=== PATIENT | male | born 1960 | race African-American/Black ===

== ENCOUNTER 2017-01-21 10:48 | Emergency (ER) | payer MEDICAID, MEDICARE, OTHER ==
[~2017-01-21] VITALS: Ht 185.4 cm; Wt 68.0 kg
[~2017-01-21 10:48] MED LIST: ACET500T68 PO; DICL75TA PO; ENAL5TAB PO; FERR325T72 PO; LISI-377 PO; OLAN5TAB3 PO; OLAN5TAB9 PO; OMEP20CA9 PO; PANT40TA3 PO; PANT40TA5 PO; POLY17PO29 PO; RANI150C PO
--- NOTE | 2017-01-21 11:05 | PHYS DOC ---
Past Medical History Past Medical History: GERD, Hypertension, Other Additional Past Medical Histor: CHRONIC,BILAT SHOULDER PAIN Past Surgical History: Other Additional Past Surgical Histo: BILAT LEG ORIF Alcohol Use: None Drug Use: None Adult General Chief Complaint Chief Complaint: GENERALIZED BODY ACHES HPI HPI Patient is a 56 year old -[place] male who presents with complaints. All of his complaints of been going on for about 4-5 month since he got out of the hospital for the same thing before. He states he feels achy everywhere he feels weak in his legs. He's been having nausea and vomiting he vomits every morning as gotten worse when he is warm. He states here in the ambulance made his nausea worse. He states if he doesn't eat when he first gets up he has abdominal pain that's diffuse and is made better when he eats something. He states he ate some oatmeal this morning in his nausea and discomfort as gotten better. He also complains about bilateral shoulders is been bothering him ever since he carried some heavy groceries and now it hurts worse. He also complains about lumbar back pain that's been going on for several months. He states it's worse when he tries to lay flat but he otherwise can stand up and walk without any difficulty. He states he was on a bunch of medicines but his primary care physician stopped all of them for 5 months ago. He states now he just takes occasional Tylenol. He also complains about some constipation he states he is to drink plenty of water or he becomes constipated dehydrated. He denies any active chest pain or shortness of breath. Review of Systems Review of Systems Constitutional: Denies fever or chills [] Eyes: Denies change in visual acuity, redness, or eye pain [] HENT: Denies nasal congestion or sore throat [] Respiratory: Denies cough or shortness of breath [] Cardiovascular: No additional information not addressed in HPI [] GI: Denies abdominal pain, nausea, vomiting, bloody stools or diarrhea [] : Denies dysuria or hematuria [] Musculoskeletal: Positive for back pain and body aches Integument: Denies rash or skin lesions [] Neurologic: Denies headache, focal weakness or sensory changes [] Endocrine: Denies polyuria or polydipsia [] Current Medications Current Medications Current Medications Medications (Trade) Dose Ordered Sig/Dalton Start Time Stop Time Status Last Admin Dose Admin Tramadol HCl (Ultram) 50 mg 1X ONCE 01/21/17 14:00 01/21/17 14:01 Allergies Allergies Allergies Coded Allergies Type Severity Reaction Last Updated Verified No Known Drug Allergies 01/21/17 No Physical Exam Physical Exam Constitutional: Well developed, well nourished, no acute distress, non-toxic appearance. [] HENT: Normocephalic, atraumatic, bilateral external ears normal, oropharynx moist, no oral exudates, nose normal. [] Eyes: PERRLA, EOMI, conjunctiva normal, no discharge. [] Neck: Normal range of motion, no tenderness, supple, no stridor. [] Cardiovascular:Heart rate regular rhythm, no murmur [] Lungs & Thorax: Bilateral breath sounds clear to auscultation [] Abdomen: Bowel sounds normal, soft, no tenderness, no masses, no pulsatile masses. [] Skin: Warm, dry, no erythema, no rash. [] Back: No tenderness, no CVA tenderness. [] Extremities: No tenderness, no cyanosis, no clubbing, ROM intact, no edema. [] Neurologic: Alert and oriented X 3, normal motor function, normal sensory function, no focal deficits noted. [] Psychologic: Affect normal, judgement normal, mood normal. [] Current Patient Data Vital Signs Vital Signs Date Time Temp Pulse Resp B/P (MAP) Pulse Ox O2 Delivery O2 Flow Rate FiO2 01/21/17 10:54 97.7 86 18 158/84 (108) 100 Room Air 97.7 Lab Values Laboratory Tests Test 01/21/17 11:35 01/21/17 13:05 White Blood Count 4.4 x10^3/uL (4.0-11.0) Red Blood Count 4.31 x10^6/uL (4.30-5.70) Hemoglobin 13.5 g/dL (13.0-17.5) Hematocrit 40.2 % (39.0-53.0) Mean Corpuscular Volume 93 fL (79-100) Mean Corpuscular Hemoglobin 31 pg (25-35) Mean Corpuscular Hemoglobin Concent 34 g/dL (31-37) Red Cell Distribution Width 14.1 % (11.5-14.5) Platelet Count 208 x10^3/uL (140-400) Neutrophils (%) (Auto) 41 % (31-73) Lymphocytes (%) (Auto) 41 % (24-48) Monocytes (%) (Auto) 12 % (0-9) H Eosinophils (%) (Auto) 6 % (0-3) H Basophils (%) (Auto) 1 % (0-3) Neutrophils # (Auto) 1.8 x10^3uL (1.8-7.7) Lymphocytes # (Auto) 1.8 x10^3/uL (1.0-4.8) Monocytes # (Auto) 0.5 x10^3/uL (0.0-1.1) Eosinophils # (Auto) 0.3 x10^3/uL (0.0-0.7) Basophils # (Auto) 0.0 x10^3/uL (0.0-0.2) Sodium Level 141 mmol/L (136-145) Potassium Level 3.7 mmol/L (3.5-5.1) Chloride Level 103 mmol/L (98-107) Carbon Dioxide Level 27 mmol/L (21-32) Anion Gap 11 (6-14) Blood Urea Nitrogen 17 mg/dL (8-26) Creatinine 0.9 mg/dL (0.7-1.3) Estimated GFR (Cockcroft-Gault) 106.4 Glucose Level 78 mg/dL (70-99) Calcium Level 9.4 mg/dL (8.5-10.1) Magnesium Level 1.9 mg/dL (1.8-2.4) Total Bilirubin 0.5 mg/dL (0.2-1.0) Direct Bilirubin 0.1 mg/dL (0.0-0.2) Aspartate Amino Transferase (AST) 19 U/L (15-37) Alanine Aminotransferase (ALT) 18 U/L (16-63) Alkaline Phosphatase 74 U/L (46-116) Creatine Kinase 151 U/L (39-308) Creatine Kinase MB (Mass) < 0.5 ng/mL (0.0-3.6) Creatine Kinase MB Relative Index % (0-4) Troponin I Quantitative < 0.017 ng/mL (0.000-0.055) Total Protein 7.5 g/dL (6.4-8.2) Albumin 4.0 g/dL (3.4-5.0) Lipase 157 U/L (73-393) Urine Collection Type Unknown Urine Color Yellow Urine Clarity Clear Urine pH 7.0 Urine Specific Guion 1.020 Urine Protein Negative mg/dL (NEG-TRACE) Urine Glucose (UA) Negative mg/dL (NEG) Urine Ketones (Stick) 40 mg/dL (NEG) Urine Blood Negative (NEG) Urine Nitrite Negative (NEG) Urine Bilirubin Negative (NEG) Urine Urobilinogen Dipstick 1.0 mg/dL (0.2 mg/dL) Urine Leukocyte Esterase Negative (NEG) Urine RBC 0 /HPF (0-2) Urine WBC 0 /HPF (0-4) Urine Squamous Epithelial Cells Few /LPF Urine Bacteria 0 /HPF (0-FEW) Urine Mucus Slight /LPF Laboratory Tests 01/21/17 11:35 Laboratory Tests 01/21/17 11:35 EKG EKG EKG shows sinus rhythm with rate of [address] elevations or concerning T-wave inversions, normal axis, LVH noted, QTC 426 ms, as interpreted by me. Radiology/Procedures Radiology/Procedures [facility] [address] [place] [address] IMAGING REPORT Signed PATIENT: KAI VILLEDA ACCOUNT: [id number] : 1960 LOCATION: ER AGE: 56 SEX: M EXAM STATUS: PRE ER ORD. PHYSICIAN: EDGARDO MG MD REASON: pain,pt denies injury or trauma,states pain for 5 months PROCEDURE: LUMBAR SPINE 2-3V Indication chronic back pain. No history of injury. AP and lateral views of the lumbar spine were obtained as well as a coned view targeted to the lumbosacral junction. There are degenerative changes at L5-S1. This is manifested as disc space narrowing vacuum disc phenomenon and some degenerative endplate change. Vertebral height is well maintained. Alignment is unremarkable. Acute bony finding is not seen. IMPRESSION: Degenerative changes at L5-S1 DICTATED and SIGNED BY: GOKUL MONZON MD DATE: 01/21/17 1201 CC: EDGARDO MG MD; YOVANY RGOERS MD ~ Impressions: Dehydration Chronic back pain Chronic shoulder pain Course & Med Decision Making Course & Med Decision Making Pertinent Labs and Imaging studies reviewed. (See chart for details) Patient's been requesting to eat. He states he feels better now. He has no acute abnormalities on physical exam that are concerning. His x-ray of his back condition to lab work did not show any acute abnormality's. His urine does show some ketones. He is been given a food tray and instructed to drink extra water. He is going to be given tramadol here and then a prescription to go home with 50 mg every 6 when necessary pain #30. He is instructed to use it as needed with Tylenol if needed. He is instructed to drink extra water, return precautions given. He is agreeable plan of being discharged in stable condition. Dragon Disclaimer Dragon Disclaimer This electronic medical record was generated, in whole or in part, using a voice recognition dictation system. Departure Departure Impression: Primary Impression: Dehydration Disposition: ADMITTED INPATIENT Condition: STABLE Referrals: YVOANY ROGERS MD (PCP) Patient Instructions: Dehydration, Adult Additional Instructions: You were seen in the ER for multiple complaints. You had shoulders pain, back pain, some nausea which is relieved when you eat food. You have you are slightly dehydrated and will need to drink a few extra glasses of water today. Your x-ray and lab work in addition to your urinalysis did not show any acute abnormalities. You can use tramadol in addition to your normal Tylenol for pain. You will need to follow-up with Dr. Rogers. His call his office and schedule follow-up appointment. Return ER for severe pain, fevers, uncontrolled nausea vomiting, or other concerns. Scripts Tramadol Hcl (TRAMADOL HCL) 50 Mg Tablet 1 TAB PO PRN Q6HRS Y for PAIN, #30 TAB Prov: EDGARDO MG MD 01/21/17 EDGARDO MG MD Jan 21, 2017 11:05
--- NOTE | 2017-01-21 11:42 | EKG ---
[facility] [address] [place] [address] Test Date: 2017-01-21 Test Time: 11:20:31 Pat Name: KAI VILLEDA Department: Room: Gender: M [employer] Consult[employer]: : 1960 Requested By: EDGARDO MG Order Number: [id number] Reading MD: Measurements Intervals [place] Rate: 82 P: 0 MT: 154 QRS: 73 QRSD: 98 T: 48 QT: 362 QTc: 426 Interpretive Statements SINUS RHYTHM QRS(T) CONTOUR ABNORMALITY CONSIDER ANTEROSEPTAL MYOCARDIAL DAMAGE CONSIDER INFERIOR MYOCARDIAL DAMAGE POSSIBLY ABNORMAL ECG RI6.01 No previous ECG available for comparison
[2017-01-21 11:46] LABS: BASO % 1 % (0-3); EOS % 6 % (0-3); HEMATOCRIT 40.2 % (39.0-53.0); HEMOGLOBIN 13.5 g/dL (13.0-17.5); LYMPH # 1.8 x10^3/uL (1.0-4.8); LYMPH % 41 % (24-48); MEAN CORPUSCULAR HEMOGLOBIN 31 pg (25-35); MEAN CORPUSCULAR HGB CONC 34 g/dL (31-37); MEAN CORPUSCULAR VOLUME 93 fL (79-100); MONO % 12 % (0-9); NEUT % 41 % (31-73); PLATELET COUNT 208 x10^3/uL (140-400); RED BLOOD COUNT 4.31 x10^6/uL (4.30-5.70); RED CELL DISTRIBUTION WIDTH 14.1 % (11.5-14.5); WHITE BLOOD COUNT 4.4 x10^3/uL (4.0-11.0)
[2017-01-21 11:53] LABS: CALCIUM 9.4 mg/dL (8.5-10.1); CREATININE 0.9 mg/dL (0.7-1.3); GFR 106.4; POTASSIUM 3.7 mmol/L (3.5-5.1)
[2017-01-21 11:57] LABS: DIRECT BILIRUBIN 0.1 mg/dL (0.0-0.2); MAGNESIUM 1.9 mg/dL (1.8-2.4); TOTAL BILIRUBIN 0.5 mg/dL (0.2-1.0); TOTAL PROTEIN 7.5 g/dL (6.4-8.2)
--- NOTE | 2017-01-21 12:07 | RAD ---
Indication chronic back pain. No history of injury. AP and lateral views of the lumbar spine were obtained as well as a coned view targeted to the lumbosacral junction. There are degenerative changes at L5-S1. This is manifested as disc space narrowing vacuum disc phenomenon and some degenerative endplate change. Vertebral height is well maintained. Alignment is unremarkable. Acute bony finding is not seen. IMPRESSION: Degenerative changes at L5-S1
[2017-01-21 12:10] LABS: CKMB MASS < 0.5 ng/mL (0.0-3.6); CREATINE KINASE 151 U/L (39-308)
--- NOTE | 2017-01-21 12:15 | RAD ---
Indication chest pain. A single view of the chest was obtained. Comparison is made to an examination May 01, 2016. There are suspect background changes of emphysema. The heart and pulmonary vessels appear normal. The lungs are clear. There is no pleural fluid or pneumothorax. Visualized bony structures appear grossly intact. A significant change in the chest compared to the previous exam is not seen. IMPRESSION: No acute or focal process. No significant change
[2017-01-21 13:16] LABS: BILIRUBIN,URINE NEGATIVE (NEG); GLUCOSE,URINE NEGATIVE (NEG); NITRITE,URINE NEGATIVE (NEG); PROTEIN,URINE NEGATIVE (NEG-TRACE)
[2017-01-21 13:20] LABS: BACTERIA,URINE 0 /HPF (0-FEW); RBC,URINE 0 /HPF (0-2); SQUAMOUS EPITHELIAL CELL,UR FEW /LPF; WBC,URINE 0 /HPF (0-4)
[2017-01-21 13:45] VITALS: BP 124/78
[2017-01-21] MEDS ORDERED: TRAM50TA PO (13:49)
[2017-01-21] MEDS ORDERED: traMADol 50 MG TABLET PO ONE (14:00)
== END 2017-01-21 13:59 | disposition home or self-care (01) ==
LOC: ER 10:48
DX: E86.0 Dehydration (principal); I10 Essential (primary) hypertension; K21.9 Gastro-esophageal reflux disease without esophagitis; R10.84 Generalized abdominal pain; M54.5 Low back pain; G89.29 Other chronic pain; K59.00 Constipation, unspecified
CPT/HCPCS: 36415; 71010; 72100; 80048; 80076; 81001; 82553; 83690; 83735; 84484; 85025; 93005; 99285-25

== ENCOUNTER 2019-04-25 22:39 | Emergency (ER) | payer MEDICARE, OTHER ==
[~2019-04-25] VITALS: Ht 185.4 cm; Wt 59.0 kg
[~2019-04-25 22:39] MED LIST changes: +OMEP20CA16 PO; -OMEP20CA9 PO; -PANT40TA3 PO; -PANT40TA5 PO; +PANT40TA77 PO; +TRAM50TA PO
[2019-04-25 22:48] VITALS: BP 149/91
[2019-04-25] MEDS ORDERED: LIDO:MAALOX 1:1 20 ML SINGLE DOSE. SWSW ONE (23:30)
[2019-04-25] MEDS ORDERED: ACETAMINOPHEN 500 MG TABLET PO ONE (23:30)
[2019-04-26] MEDS ORDERED: ACET500T68 PO (00:36)
[2019-04-26] MEDS ORDERED: FAMO20TA5 PO (00:36)
--- NOTE | 2019-04-26 00:37 | PHYS DOC ---
Past Medical History Past Medical History: GERD, Hypertension, Renal Failure, Other Additional Past Medical Histor: CHRONIC,BILAT SHOULDER PAIN (ANTOINETTE PRATHER APRN) Past Surgical History: Other Additional Past Surgical Histo: BILAT LEG ORIF (ANTOINETTE PRATHER APRN) Alcohol Use: None Drug Use: None (ANTOINETTE PRATHER APRN) Attending Signature I have participated in the care of this patient and I have reviewed and agree with all pertinent clinical information above including history, exam, and recommendations. (CHARLES PETER MD) Adult General Chief Complaint Chief Complaint: [facility] HPI Patient is a 58 year old AA male who presents to emergency department via EMS with complaints of bilateral shoulder pain that increased after he was outside in cold weather today. Patient states his shoulder pain radiates to his neck and his upper back. He denies any chest pain, palpitations, shortness of breath, wheezing, vomiting, diarrhea, fever, sore throat, ear pain, headache, dizziness, numbness, tingling, or weakness of his extremities. Patient states he has had some burning pain in his upper abdomen with nausea today. He states he thinks it is due to not eating very much today. He rates his pain a 7 out of 10 on the pa in scale he describes the pain as a cramp that is worse with movement. Patient also reports lifting a heavy TV earlier today and thinks that might have caused his shoulder pain. He denies any recent injury or fall. All other ROS is neg unless otherwise noted in HPI. (ANTOINETTE PRATHER APRN) Review of Systems Review of Systems See Above (ANTOINETTE PRATHER APRN) Current Medications Current Medications Current Medications Medications (Trade) Dose Ordered Sig/Dalton Start Time Stop Time Status Last Admin Dose Admin Acetaminophen (Tylenol) 1,000 mg 1X ONCE 04/25/19 23:30 04/25/19 23:31 DC 04/25/19 23:31 500 MG Multi-Ingredient Mouthwash/Gargle (Gi Cocktail) 20 ml 1X ONCE 04/25/19 23:30 04/25/19 23:31 DC 04/25/19 23:30 20 ML (CHARLES PETER MD) Allergies Allergies Allergies Coded Allergies Type Severity Reaction Last Updated Verified No Known Drug Allergies 01/21/17 No (CHARLES PETER MD) Allergies See Above (ANTOINETTE PRATHER APRN) Physical Exam Physical Exam See Above Constitutional: Well developed, well nourished, no acute distress, non-toxic appearance. [] HENT: Normocephalic, atraumatic, bilateral external ears normal, oropharynx moist, no oral exudates, nose normal. [] Eyes: PERRLA, EOMI, conjunctiva normal, no discharge. [] Neck: Normal range of motion, no tenderness, supple, no stridor. [] Cardiovascular:Heart rate regular rhythm, no murmur [] Lungs & Thorax: Bilateral breath sounds clear to auscultation, Respirations even and unlabored, no retractions, no respiratory distress [] Abdomen: Bowel sounds normal, soft, no tenderness, no masses, no pulsatile masses. [] Skin: Warm, dry, no erythema, no rash. [] Back: No tenderness Extremities: No bony tenderness, no cyanosis, no clubbing, ROM intact, no edema. [] Neurologic: Alert and oriented X 3, no focal deficits noted. [] Psychologic: Affect normal, judgement normal, mood normal. [] (ANTOINETTE PRATHER APRN) Current Patient Data Vital Signs Vital Signs Date Time Temp Pulse Resp B/P (MAP) Pulse Ox O2 Delivery O2 Flow Rate FiO2 04/25/19 22:48 98.3 98 20 149/91 (110) 100 Room Air 98.3 (CHARLES PETER MD) EKG EKG [] (ANTOINETTE PRATHER APRN) Radiology/Procedures Radiology/Procedures [] (ANTOINETTE PRATHER APRN) Course & Med Decision Making Course & Med Decision Making Pertinent Labs and Imaging studies reviewed. (See chart for details) The patient was given a GI cocktail and 500 mg of Tylenol in the emergency department he reported relief of his abdominal pain and states that his shoulders felt better. Prescriptions were written for Pepcid and Tylenol. Patient was encouraged follow bland diet. Follow-up with his primary care doctor in 1-2 days, return to the ER if symptoms worsen. Patient verbalized an understanding of home care, medications, follow-up, and return to ED instructions and was in agreement with the plan of care. [] (ANTOINETTE PRATHER APRN) Dragon Disclaimer Dragon Disclaimer This electronic medical record was generated, in whole or in part, using a voice recognition dictation system. (ANTOINETTE PRATHER APRN) Departure Departure Impression: Primary Impression: Pain of both shoulder joints Additional Impressions: Epigastric pain Acid indigestion Disposition: HOME, SELF-CARE Condition: STABLE Referrals: YOVANY ROGERS MD (PCP) Patient Instructions: Heartburn, [id number], Shoulder Pain, [id number] Additional Instructions: Fill the prescriptions and use them as directed. Recommend that you eat a bland diet for a few days until your reflux has improved. Follow-up with your primary care doctor in 1-2 days. Return to the ER if symptoms worsen. Scripts Famotidine (FAMOTIDINE) 20 Mg Tablet 20 MG PO HS for 30 Days, #30 TAB 0 Refills Prov: ANTOINETTE PRATHER APRN 04/26/19 Acetaminophen (ACETAMINOPHEN) 500 Mg Tablet 1 TAB PO PRN Q6HRS PRN for pain or fever for 15 Days, #30 TAB 0 Refills Prov: ANTOINETTE PRATHER APRN 04/26/19 Problem Qualifiers ANTOINETTE PRATHER APRN Apr 26, 2019 00:37 CHARLES PETER MD Apr 26, 2019 01:34
== END 2019-04-26 00:45 | disposition home or self-care (01) ==
LOC: ER 22:39
DX: M25.512 Pain in left shoulder (principal); M25.511 Pain in right shoulder; K30 Functional dyspepsia; G89.29 Other chronic pain; K21.9 Gastro-esophageal reflux disease without esophagitis; N18.9 Chronic kidney disease, unspecified; I12.9 Hypertensive chronic kidney disease with stage 1 through stage 4 chronic kidney disease, or unspecified chronic kidney disease
CPT/HCPCS: 99283

== ENCOUNTER 2019-05-10 20:24 | Emergency (ER) | payer MEDICARE ==
[~2019-05-10] VITALS: Ht 185.4 cm; Wt 55.0 kg
[~2019-05-10 20:24] MED LIST changes: +FAMO20TA5 PO
[2019-05-10 20:30] VITALS: BP 149/91
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
== END 2019-05-10 22:40 | disposition home or self-care (01) ==
LOC: ER 20:24
DX: S20.212D Contusion of left front wall of thorax, subsequent encounter (principal); Z59.0 Homelessness; K21.9 Gastro-esophageal reflux disease without esophagitis; I12.9 Hypertensive chronic kidney disease with stage 1 through stage 4 chronic kidney disease, or unspecified chronic kidney disease; N18.9 Chronic kidney disease, unspecified; F17.200 Nicotine dependence, unspecified, uncomplicated; Y04.0XXD Assault by unarmed brawl or fight, subsequent encounter; Y93.89 Activity, other specified; Y92.89 Other specified places as the place of occurrence of the external cause; Y99.8 Other external cause status
CPT/HCPCS: 99281; 99283

== ENCOUNTER 2021-05-04 15:22 | Emergency (ER) | payer MEDICARE ==
[~2021-05-04] VITALS: Ht 185.4 cm; Wt 56.5 kg
[~2021-05-04 15:22] MED LIST changes: -ENAL5TAB PO; +ENAL5TAB12 PO; +MELO15TA23 PO; +METH-561 PO; +METH4TAB2 PO; +OLAN5TAB67 PO; -OLAN5TAB9 PO
[2021-05-04 18:03] LABS: BILIRUBIN,URINE NEGATIVE (NEG); CLARITY,URINE CLOUDY; COLOR,URINE YELLOW; NITRITE,URINE NEGATIVE (NEG); PH,URINE 5.5 (<5.0-8.0); PROTEIN,URINE 30 mg/dL (NEG-TRACE)
--- NOTE | 2021-05-04 18:23 | RAD ---
AP upright and supine abdomen x-rays HISTORY: Abdominal pain and constipation. FINDINGS: No pneumoperitoneum evident on the upright abdomen x-ray. Lung bases and bones are normal. There is a moderate stool and bowel gas distention throughout the colon. No dilated small bowel loops or abnormal fluid to suggest bowel obstruction. IMPRESSION: Moderate volume of stool within the colon may indicate constipation. No small bowel obstr uction evident. Electronically signed by: Albert Tang MD (05/04/2021 6:20 PM) [facility]
[2021-05-04] MEDS ORDERED: BISACODYL 10 MG SUPP.RECT. PR ONE (18:30)
[2021-05-04] MEDS ORDERED: MAGNESIUM CITRATE 296 ML SOLUTION. PO ONE (18:30)
[2021-05-04 18:32] LABS: AMORPHOUS SEDIMENT,UR PRESENT /HPF; HYALINE CASTS, URINE OCCASIONAL /HPF; RBC,URINE OCC /HPF (0-2); WBC,URINE OCC /HPF (0-4)
[2021-05-04 18:33] LABS: BACTERIA,URINE 0 /HPF (0-FEW)
--- NOTE | 2021-05-04 19:09 | PHYS DOC ---
Past Medical History Past Medical History: Bipolar, Constipation, Depression, GERD, Hypertension, Renal Failure, Other Additional Past Medical Histor: CHRONIC,BILAT SHOULDER PAIN Past Surgical History: Other Additional Past Surgical Histo: BILAT LEG ORIF Smoking Status: Current Every Day Smoker Alcohol Use: None Drug Use: None General Adult EDM: Chief Complaint: NAUSEA/VOMITING/DIARRHEA HPI: HPI: Patient is a 60 year old male well-known to this ED presenting today complaining of abdominal pain with constipation and chronic back pain. Patient is a poor historian, he does not know when his symptoms started, he states he was having a bowel movement today and felt he was constipated, he states he feels nauseated but does not have any vomiting. Patient denies any injury to causes back pain, he states his had similar pain before. Denies any pain radiating to bilateral lower extremities, denies any loss of bowel/bladder function. Review of Systems: Review of Systems: Constitutional: Denies fever or chills. [] Eyes: Denies change in visual acuity. [] HENT: Denies nasal congestion or sore throat. [] Respiratory: Denies cough or shortness of breath. [] Cardiovascular: Denies chest pain or edema. [] GI: Reports abdominal pain nausea, denies vomiting, bloody stools or diarrhea. [] : Denies dysuria. [] Musculoskeletal: Reports chronic back pain Integument: Denies rash. [] Neurologic: Denies headache, focal weakness or sensory changes. [] [] Psychiatric: Denies depression or anxiety. [] Heart Score: C/O Chest Pain: N/A Risk Factors: Risk Factors: DM, Current or recent (<one month) smoker, HTN, HLP, family history of CAD, obesity. Risk Scores: Score 0 - 3: 2.5% MACE over next 6 weeks - Discharge Home Score 4 - 6: 20.3% MACE over next 6 weeks - Admit for Clinical Observation Score 7 - 10: 72.7% MACE over next 6 weeks - Early Invasive Strategies Current Medications: Current Medications Medications (Trade) Dose Ordered Sig/Dalton Start Time Stop Time Status Last Admin Dose Admin Bisacodyl (Dulcolax Supp) 10 mg 1X ONCE 05/04/21 18:30 05/04/21 18:31 DC Magnesium Citrate (Citroma) 296 ml 1X ONCE 05/04/21 18:30 05/04/21 18:31 DC Allergies: Allergies: Allergies Coded Allergies Type Severity Reaction Last Updated Verified No Known Drug Allergies 01/21/17 No Physical Exam: PE: Constitutional: Well developed, well nourished, no acute distress, non-toxic appearance. [] HENT: Normocephalic, atraumatic, bilateral external ears normal, oropharynx moist, no oral exudates, nose normal. [] Eyes: PERRLA, EOMI, conjunctiva normal, no discharge. [] Neck: Normal range of motion, no tenderness, supple, no stridor. [] Cardiovascular:Heart rate regular rhythm, no murmur [] Lungs & Thorax: Bilateral breath sounds clear to auscultation [] Abdomen: Flat abdomen bowel sounds normal, soft, no tenderness, no masses, no pulsatile masses. [] Skin: Warm, dry, no erythema, no rash. [] Back: No tenderness, no CVA tenderness. [] Extremities: No tenderness, no cyanosis, no clubbing, ROM intact, no edema. [] Neurologic: Alert and oriented X 3, normal motor function, normal sensory function, no focal deficits noted. [] Psychologic: Flat affect Current Patient Data: Labs: Laboratory Tests Test 05/04/21 17:50 Urine Collection Type Void Urine Color Yellow Urine Clarity Cloudy Urine pH 5.5 (<5.0-8.0) Urine Specific Greenback >=1.030 (1.000-1.030) Urine Protein 30 mg/dL (NEG-TRACE) Urine Glucose (UA) Negative mg/dL (NEG) Urine Ketones (Stick) Negative mg/dL (NEG) Urine Blood Negative (NEG) Urine Nitrite Negative (NEG) Urine Bilirubin Negative (NEG) Urine Urobilinogen Dipstick 1.0 mg/dL (0.2 mg/dL) Urine Leukocyte Esterase Negative (NEG) Urine RBC Occ /HPF (0-2) Urine WBC Occ /HPF (0-4) Urine Squamous Epithelial Cells Occ /LPF Urine Amorphous Sediment Present /HPF Urine Bacteria 0 /HPF (0-FEW) Urine Hyaline Casts Occasional /HPF Urine Mucus Marked /LPF Vital Signs: Vital Signs Date Time Temp Pulse Resp B/P (MAP) Pulse Ox O2 Delivery O2 Flow Rate FiO2 05/04/21 17:21 87 18 188/92 (124) 100 Room Air 05/04/21 15:47 98.1 98.1 EKG: EKG: [] Radiology/Procedures: Radiology/Procedures: PROCEDURE: LUMBAR SPINE 2-3V AP upright and supine abdomen x-rays HISTORY: Abdominal pain and constipation. FINDINGS: No pneumoperitoneum evident on the upright abdomen x-ray. Lung bases and bones are normal. There is a moderate stool and bowel gas distention throughout the colon. No dilated small bowel loops or abnormal fluid to suggest bowel obstruction. IMPRESSION: Moderate volume of stool within the colon may indicate constipation. No small bowel obstruction evident. Electronically signed by: Elise Tang MD (05/04/2021 6:20 PM) [facility] [place] and SIGNED BY: ELISE TANG MD DATE: 05/04/21 [id number] 0 Course & Med Decision Making: Course & Med Decision Making Pertinent Labs and Imaging studies reviewed. (See chart for details) This is a 60-year-old male patient well-known to this ED presenting today complaining of abdominal pain, constipation, nausea and chronic low back pain. Abdomen supine and upright x-ray noted for moderate amount of stool in the colon. Given suppository and mag citrate. Discussed with patient importance of adequate fiber intake, adequate water intake, and [id number] remedies for constipation. Recommended [id number] remedies for back pain including heating pad, naproxen and Flexeril recommended for back pain Dragon Disclaimer: Dragon Disclaimer: This electronic medical record was generated, in whole or in part, using a voice recognition dictation system. Departure Departure Impression: Primary Impression: Abdominal pain Qualified Codes: R10.33 - Periumbilical pain Additional Impressions: Constipation Qualified Codes: K59.00 - Constipation, unspecified Chronic back pain Qualified Codes: M54.50 - Low back pain, unspecified; G89.29 - Other chronic pain Disposition: 01 HOME / SELF CARE / HOMELESS Condition: STABLE Referrals: YOVANY ROGERS MD (PCP) follow up in one week Patient Instructions: Abdominal Pain, Back Pain, Adult, Constipation, Adult Additional Instructions: You were evaluated in the emergency room and noted to be constipated. Please increase your dietary fiber intake as well as your water intake. Take MiraLAX every day to prevent constipation. Consider magnesium citrate anytime you are constipated. AURELIO RODRIGUEZ APRN May 04, 2021 19:09
[2021-05-04 19:11] VITALS: BP 154/74
== END 2021-05-04 19:22 | disposition home or self-care (01) ==
LOC: ER 15:22
DX: K59.00 Constipation, unspecified (principal); M54.50 Low back pain, unspecified; G89.29 Other chronic pain; F31.9 Bipolar disorder, unspecified; K21.9 Gastro-esophageal reflux disease without esophagitis; I12.9 Hypertensive chronic kidney disease with stage 1 through stage 4 chronic kidney disease, or unspecified chronic kidney disease; N18.9 Chronic kidney disease, unspecified; F17.200 Nicotine dependence, unspecified, uncomplicated
CPT/HCPCS: 72100; 74021; 81001; 99283; 99284